=== PATIENT | female | born 1990 | race African-American/Black ===

== ENCOUNTER 2022-12-14 11:47 | Emergency (ER) | payer OTHER ==
[2022-12-14 12:00] VITALS: BP 119/76; PULSE 87; RESP 18; TEMP 98.4; BMI 28.3
[2022-12-14 13:24] LABS: BASO % 0.8 % (0-2.0); EOS % 0.8 % (0-4.5); HEMATOCRIT 35.4 % (32.4-45.2); HEMOGLOBIN 11.7 GM/dL (10.7-15.3); LYMPH % 42.9 % (8-40); MCH 29.2 pg (25.7-33.7); MEAN CELL VOLUME 88.4 fl (80-96); MEAN PLT VOLUME 8.1 fl (7.5-11.1); MONO % 7.6 % (3.8-10.2); NEUT % 47.9 % (42.8-82.8); PLATELET COUNT 311 10^3/uL (134-434); RDW 13.6 % (11.6-15.6)
[2022-12-14 13:50] LABS: POTASSIUM 4.2 mmol/L (3.5-5.1)
[2022-12-14 13:52] LABS: BLOOD UREA NITROGEN 4.8 mg/dL (7-18)
[2022-12-14 13:56] LABS: CREATININE 0.6 mg/dL (0.55-1.3)
== END 2022-12-14 14:33 | disposition home or self-care (01) ==
LOC: JER 11:47
DX: R07.2 Precordial pain (principal)
CPT/HCPCS: 36415; 71046-TC-FY; 80048; 82550; 84484; 85025; 93005; 93010; 99285-25

== ENCOUNTER 2023-01-04 22:22 | Emergency (ER) | payer OTHER ==
[2023-01-04 22:29] VITALS: BP 115/76; PULSE 79; RESP 18; BMI 27.9
[2023-01-04] MEDS ORDERED: DIPHTH,PERTUSS(ACELL),TET 0.5 ML DISP.SYRIN IM ONE ×2 (23:17→23:20)
== END 2023-01-04 23:29 | disposition home or self-care (01) ==
LOC: JERFT 22:22 → JER 22:22
PROC: 3E0234Z Introduction of Serum, Toxoid and Vaccine into Muscle, Percutaneous Approach (ICD-10-PCS; principal; 2023-01-04)
DX: T14.8XXA Other injury of unspecified body region, initial encounter (principal); W53.01XA Bitten by mouse, initial encounter; Y93.89 Activity, other specified; Y92.009 Unspecified place in unspecified non-institutional (private) residence as the place of occurrence of the external cause
CPT/HCPCS: 90471; 90715; 99282-25

== ENCOUNTER 2023-01-29 09:48 | Emergency (ER) | payer OTHER ==
[2023-01-29 09:59] VITALS: BP 111/72; PULSE 86; RESP 20; TEMP 98.4; BMI 27.9
== END 2023-01-29 11:17 | disposition home or self-care (01) ==
LOC: JERFT 09:48
DX: S80.862A Insect bite (nonvenomous), left lower leg, initial encounter (principal); W57.XXXA Bitten or stung by nonvenomous insect and other nonvenomous arthropods, initial encounter
CPT/HCPCS: 99282-25

== ENCOUNTER 2023-02-26 16:50 | Emergency (ER) | payer OTHER ==
[2023-02-26 17:01] VITALS: BP 114/75; PULSE 97; RESP 20; TEMP 98.2; BMI 27.9
[2023-02-26 20:57] LABS: BASO % 0.7 % (0-2.0); EOS % 0.4 % (0-4.5); HEMOGLOBIN 12.2 GM/dL (10.7-15.3); LYMPH % 33.5 % (8-40); MCH 28.4 pg (25.7-33.7); MCHC 31.3 g/dl (32.0-36.0); MEAN CELL VOLUME 90.7 fl (80-96); MEAN PLT VOLUME 7.8 fl (7.5-11.1); NEUT % 59.4 % (42.8-82.8); PLATELET COUNT 337 10^3/uL (134-434); WHITE BLOOD COUNT 6.2 K/mm3 (4.0-10.0)
[2023-02-26 21:02] LABS: INR 1.03 (0.83-1.09)
[2023-02-26 21:10] LABS: ACTIVATED PTT 31.9 SECONDS (25.2-36.5)
[2023-02-26 21:28] LABS: POTASSIUM 4.2 mmol/L (3.5-5.1)
[2023-02-26 21:30] LABS: CALCIUM 9.1 mg/dL (8.5-10.1)
[2023-02-26 21:31] LABS: ALBUMIN 4.2 g/dl (3.4-5.0); BLOOD UREA NITROGEN 3.2 mg/dL (7-18); MAGNESIUM 2.2 mg/dL (1.8-2.4)
[2023-02-26 21:33] LABS: CREATININE 0.7 mg/dL (0.55-1.3)
[2023-02-26 21:35] LABS: BILIRUBIN,TOTAL 0.2 mg/dL (0.2-1); TOT PROT 7.8 g/dl (6.4-8.2)
== END 2023-02-26 22:15 | disposition home or self-care (01) ==
LOC: JER 16:50
DX: R00.2 Palpitations (principal); M79.602 Pain in left arm; R20.2 Paresthesia of skin; M54.2 Cervicalgia; R68.84 Jaw pain
CPT/HCPCS: 36415; 71046-TC-FY; 80053; 83735; 84443; 84484; 85025; 85610; 85730; 93005; 93010; 99285-25

== ENCOUNTER 2023-05-31 09:37 | Emergency (ER) | payer OTHER ==
[2023-05-31 09:45] VITALS: BP 120/45; PULSE 99; RESP 18; TEMP 98.1; BMI 24.0
== END 2023-05-31 12:19 | disposition home or self-care (01) ==
LOC: JERFT 09:37 → JER 09:37 → JERFT 12:19
DX: H92.01 Otalgia, right ear (principal); H92.11 Otorrhea, right ear; H93.8X1 Other specified disorders of right ear
CPT/HCPCS: 99283-25

== ENCOUNTER 2024-02-08 09:05 | Emergency (ER) | payer OTHER ==
[2024-02-08 09:10] VITALS: BP 112/75; PULSE 76; RESP 18; TEMP 97.5; BMI 27.3
== END 2024-02-08 09:58 | disposition home or self-care (01) ==
LOC: JERFT 09:05 → JER 09:05 → JERFT 09:58
DX: L02.811 Cutaneous abscess of head [any part, except face] (principal)
CPT/HCPCS: 99283-25